=== PATIENT | male | born 1930 | race Caucasian/White ===

== ENCOUNTER 2017-02-11 14:11 | Day surgery (SDC) | payer OTHER ==
[2017-02-11] MEDS ORDERED: PROPOFOL 20 ML (16:26)
[2017-02-11] MEDS ORDERED: MIDAZOLAM 1 MG/ML 2 ML INJ (16:27)
== END 2017-02-11 19:13 | disposition home or self-care (01) ==
LOC: GIL 14:11
DX: R19.4 Change in bowel habit (principal); D12.5 Benign neoplasm of sigmoid colon; K64.8 Other hemorrhoids; I10 Essential (primary) hypertension
CPT/HCPCS: 45380; 88305